=== PATIENT | male | born 1970 | race American Indian/Alaskan Native ===

== ENCOUNTER 2018-02-28 14:07 | Emergency (ER) | payer OTHER ==
[2018-02-28] MEDS ORDERED: TYLENOL ONE (14:10)
[2018-02-28] MEDS ORDERED: NACL 0.9% 500 ML 500 ML IV ONE (14:19)
[2018-02-28] MEDS ORDERED: TYLENOL PO ONE ×2 (14:20→23:48)
--- NOTE | 2018-02-28 14:57 | XRay Report ---
FINAL REPORT PROCEDURE: XR CHEST 1V AP TECHNIQUE: Chest radiograph anteroposterior view. CPT 80094 HISTORY: possible Sepsis COMPARISON: No prior studies are available for comparison. FINDINGS: Heart: Normal. Mediastinum/Vessels: Normal. Lungs/Pleural space: No infiltrate, effusion, or pneumothorax. There is a large bulla noted in the right apex. Bony thorax: No acute osseous abnormality. Life support devices: None. IMPRESSION: No radiographic evidence of acute cardiopulmonary abnormality.
[2018-02-28 15:05] LABS: Hematocrit 46.9 % (35.5-45.6); Hemoglobin 15.9 gm/dl (11.8-15.2); Mean Corpuscular HGB Conc 34 % (32-34); Mean Corpuscular Hemoglobin 32 pg (28-32); Mean Corpuscular Volume 94 fl (84-94); Platelet Count 220 K/mm3 (140-440); Red Cell Distribution Width 14.3 % (13.2-15.2)
[2018-02-28 15:10] LABS: INR 0.87 (0.87-1.13)
[2018-02-28 15:17] LABS: Albumin 4.4 g/dL (3.9-5); Calcium 9.8 mg/dL (8.4-10.2)
[2018-02-28 16:19] LABS: Band Neutrophils # (Manual) 0.2 K/mm3; Basophils % (Manual) 0 % (0.0-1.8); Eosinophils % (Manual) 0 % (0.0-4.3); Platelet Estimate Consistent w Auto; Total Cells Counted 100
[2018-02-28] MEDS ORDERED: MOTRIN PO ONE (23:48)
[2018-03-01] MEDS ORDERED: ATIVAN IV ONE (00:08)
[2018-03-01] MEDS ORDERED: LIBRIUM PO ONE (00:08)
[2018-03-01] MEDS ORDERED: ZOFRAN IV ONE (00:08)
[2018-03-01] MEDS ORDERED: NACL 0.9% 1000 ML 1,000 ML IV ONE (00:08)
[2018-03-01] MEDS ORDERED: LEVAQUIN 750MG/150ML 750 MG/150 ML BAG IV ONE (00:10)
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
[2018-03-01 00:26] LABS: Bilirubin,Urine NEG (Negative); Blood,Urine MOD (Negative); Color,Urine Yellow (Yellow); Mucus,Urine FEW /HPF
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
[2018-03-01 02:34] VITALS: BP 113/76
[2018-03-01] MEDS ORDERED: KEFLEX PO ONE (02:39)
== END 2018-03-01 02:46 | disposition home or self-care (01) ==
LOC: ED 14:07
DX: J20.9 Acute bronchitis, unspecified (principal); B34.9 Viral infection, unspecified; F17.200 Nicotine dependence, unspecified, uncomplicated
CPT/HCPCS: 36415; 71045; 74176; 80053; 81001; 82140; 82805; 85007; 85025; 85610; 87040; 87086; 96365; 96366; 96375; 99285; J1956; J2060; J2405; J7030

== ENCOUNTER 2020-07-19 01:08 | Emergency (ER) | payer SELFPAY ==
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
[2020-07-19] MEDS ORDERED: DEXTROSE 50% IN WATER (25GM) 50 ML SYRINGE IV ONE ×2 (02:01→05:47)
[2020-07-19] MEDS ORDERED: MAGNESIUM SULFATE 2 GM/50 ML BAG IV ONE (05:47)
[2020-07-19] MEDS ORDERED: EPINEPHrine 1 MG/10 ML SYRINGE ONE (16:34)
[2020-07-19] MEDS ORDERED: SODIUM BICARB 8.4% 50 MEQ/50 ML SYRINGE IV ONE (16:34)
== END 2020-07-19 06:23 ==
LOC: ED 01:08
DX: S81.831A Puncture wound without foreign body, right lower leg, initial encounter (principal); I46.9 Cardiac arrest, cause unspecified; F17.200 Nicotine dependence, unspecified, uncomplicated; Z79.899 Other long term (current) drug therapy; W34.09XA Accidental discharge from other specified firearms, initial encounter; Y93.89 Activity, other specified; Y92.89 Other specified places as the place of occurrence of the external cause; Y99.8 Other external cause status
CPT/HCPCS: 31500; 82962; 92950; 99291; J0171; J3475